=== PATIENT | male | born 1960 | race Caucasian/White ===

== ENCOUNTER 2024-05-27 11:00 | Outpatient (CLI) | payer MEDICARE, SELFPAY | END 2024-05-27 11:01 | disposition home or self-care (01) | PROVIDERS: PCP Nurse Practitioner Family; Visit Provider Nurse Practitioner Family | DX: I10 Essential (primary) hypertension (principal); E78.5 Hyperlipidemia, unspecified; D50.9 Iron deficiency anemia, unspecified; E11.9 Type 2 diabetes mellitus without complications; F41.9 Anxiety disorder, unspecified; Z12.5 Encounter for screening for malignant neoplasm of prostate | CPT/HCPCS: 80053; 80061; 82043; 82570; 82607; 84443; 85025; G0103 ==

== ENCOUNTER 2024-06-12 11:55 | Outpatient (CLI) | payer MEDICARE, SELFPAY ==
--- NOTE | 2024-06-12 13:40 | P.ANES_ITS ---
Anesthesia Charges Start Date/Time Anesthesia Start Date: 06/12/24 Anesthesia Start Time: 13:13 Stop Date/Time Anesthesia Stop Date: 06/12/24 Anesthesia Stop Time: 13:38 Coding CPT Codes CPT Codes: ANES LWR INTST SCR COLSC - 62524 ([id number]) P3 - PATIENT W/SEVERE SYS DISEASE, QZ - PARTS REPRESENTATIVE SVC W/O PHARMACEUTICAL SALES REPRESENTATIVE BY
--- NOTE | 2024-06-12 13:40 | W.ANESCHARGE ---
Anesthesia Charges Start Date/Time Anesthesia Start Date: 06/12/24 Anesthesia Start Time: 13:13 Stop Date/Time Anesthesia Stop Date: 06/12/24 Anesthesia Stop Time: 13:38 Coding CPT Codes CPT Codes: ANES LWR INTST SCR COLSC - 12936 ([id number]) P3 - PATIENT W/SEVERE SYS DISEASE, QZ - YARN WASHER SVC W/O PIPE COVERING MOLDER BY
== END 2024-06-12 11:56 | disposition home or self-care (01) ==
PROVIDERS: PCP Nurse Practitioner Family; Visit Provider Surgery
DX: Z12.11 Encounter for screening for malignant neoplasm of colon (principal); Z86.0100 Personal history of colon polyps, unspecified
CPT/HCPCS: 00812; 45378; J2704

== ENCOUNTER 2024-07-04 14:02 | Outpatient (CLI) | payer MEDICARE, SELFPAY | END 2024-07-04 14:03 | disposition home or self-care (01) | LOC: KYNREF 14:02 | PROVIDERS: PCP Nurse Practitioner Family; Visit Provider Nurse Practitioner Family | DX: Z51.81 Encounter for therapeutic drug level monitoring (principal) | CPT/HCPCS: 80162 ==